=== PATIENT | female | born 1940 | race African-American/Black ===

== ENCOUNTER 2018-10-30 12:13 | Observation (INO) ==
--- NOTE | 2018-10-30 13:44 | PROVIDER DOCUMENTATION ---
HPI-Psychological Disorder - General Chief Complaint: General Adult Stated Complaint: neck px/psych/cardiac? Time Seen by Provider: 10/30/18 12:32 Source: family (daughter) Allergies/Adverse Reactions: Patient Allergies Allergy/AdvReac Type Severity Reaction Status Date / Time No Known Allergies Allergy Verified 05/30/14 20:20 Home Medications: Home Medication List Medication Instructions Recorded Confirmed Last Taken Type Calcium Carbonate Chew [Tums] 500 mg PO AC + HS PRN PRN 05/30/14 05/30/14 Unknown History Methocarbamol 500 mg PO TID PRN 05/30/14 05/30/14 Unknown History Citalopram [Celexa] 10 mg PO QHS #0 tablet 06/06/14 Unknown Rx Donepezil [Aricept] 5 mg PO HS #0 tablet 06/06/14 Unknown Rx Fish Oil/Borage/Flax/Om3,6,9#1 1,200 mg PO QHS #0 06/06/14 05/30/14 05/29/14 18:00 Rx [[place] 3-6-9 1,200 mg Softgel] LISINOpril [Prinivil] 5 mg PO QHS #0 06/06/14 05/30/14 05/30/14 18:30 Rx - History of Present Illness-Psych Nature of Presenting Problem: Pt is 78 yo female, daughter states pt has been increasingly paranoid, thinks is trying to kill her with "rays" going through her body. States they have been trying to get her admitted to [facility] and she took her there this morning, her bp was elevated and pt was c/o neck pain, had syncopal epidsode while sitting in triage chair, was out for approx 30 seconds, when regained consciousness, vomited and was diaphoretic, so they called an ambulance, ekg was done on scene and she was brought here for medical clearance. Daughter states the last time she was admitted to [facility] was approx 4 years ago. Onset/Duration: reports: gradual Timing: reports: still present Psychiatric Complaints: reports: paranoid Previous psych related hospitalizations?: Yes Similar Symptoms Previously?: Yes Review of Systems - Adult - REVIEW OF SYSTEMS - ADULT Constitutional: denies: chills, fever Eyes: reports: no symptoms reported Ears, Nose, Mouth & Throat: reports: no symptoms reported Cardiovascular: denies: chest pain Respiratory: reports: shortness of breath Gastrointestinal: reports: vomiting (x1 today) Genitourinary: reports: frequency Musculoskeletal: reports: neck pain Integumentary: denies: rash Psychiatric: reports: insomnia, other (paranoia). denies: suicidal thoughts Endocrine: reports: no symptoms reported Hematologic/Lymphatic: reports: no symptoms reported Allergic/Immunologic: reports: no symptoms reported All Other Systems: Reviewed and Negative Past History - Adult - PAST MEDICAL HISTORY-ADULT Review of Records: reports: Old Records Reviewed, Medications Reviewed, Social history reviewed & non-contributory. Physical Exam-Psych Focus - Physical Exam-Psych Initial Vital Signs Reviewed: Yes (elevated blood pressure) Appearance: appropriate appearance, neat, no apparent distress, alert, impaired insight, impaired recent memory Neurological: alert, normal mood/affect, calm Behavior/Eye Contact/Speech: cooperative, good eye contact, normal speech Thoughts/Hallucinations: no apparent hallucination HENMT: normocephalic/atraumatic, moist mucous membranes Neck: full range of motion, supple, other (cervical paraspinal tenderness bilaterally, no cervical point tenderness) Respiratory: lungs clear, normal breath sounds, no pleuratic chest pain, no respiratory distress, no accessory muscle use Cardiovascular: regular rate, rhythm, no murmur Extremity: swelling (bilat 1+ lower ext) Integumentary: normal color, normal turgor, warm/dry Progress - PLAN OF CARE/RESULTS Progress/Plan/Lab Results: Vital Signs - 8 hr 10/30/18 12:01 Temperature 98.7 F Pulse Rate 75 Respiratory Rate 18 Blood Pressure 179/86 O2 Sat by Pulse Oximetry 99 Laboratory Results - last 24 hr 10/30/18 10/30/18 10/30/18 13:29 13:43 13:43 WBC 11.43 H RBC 4.72 Hgb 12.3 Hct 36.1 L MCV 76.5 L MCH 26.1 L MCHC 34.1 RDW Std Deviation 14.4 Plt Count 322 MPV 10.3 Immature Gran % (Auto) 0.2 Neut % (Auto) 81.9 H Lymph % (Auto) 12.9 L [place] % (Auto) 4.8 Eos % (Auto) 0.1 Baso % (Auto) 0.1 Immature Gran # (Auto) 0.02 Neut # (Auto) 9.36 H Lymph # (Auto) 1.48 [place] # (Auto) 0.55 Eos # (Auto) 0.01 Baso # (Auto) 0.01 Sodium 127 L Potassium 4.0 Chloride 91 L Carbon Dioxide 25 Anion Gap 12 BUN 12 Creatinine 0.5 Estimated GFR/1.73 m2 > 60 BUN/Creatinine Ratio 24 Glucose 114 H Calculated Osmolality 256 Calcium 8.9 Total Bilirubin 0.40 AST 44 H ALT 28 Alkaline Phosphatase 54 Troponin T Total Protein 7.6 Albumin 4.2 Globulin 3.0 Albumin/Globulin Ratio 1.0 Vitamin B12 TSH Free T4 Urine Source CLEAN CATCH Urine Color YELLOW Urine Clarity CLEAR Urine pH 8.0 Ur Specific [place] 1.005 Urine Protein NEGATIVE Urine Ketones TRACE Urine Blood NEGATIVE Urine Nitrite NEGATIVE Urine Bilirubin NEGATIVE Urine Urobilinogen NORMAL Urine Microscopic RBC <10 Urine WBC NEGATIVE Urine Microscopic WBC <10 Ur Epithelial Cells <10 Urine Crystals NONE SEEN Urine Bacteria NEGATIVE Urine Casts NONE SEEN Urine Yeast NONE SEEN Urine Glucose NEGATIVE 10/30/18 10/30/18 13:43 13:43 WBC RBC Hgb Hct MCV MCH MCHC RDW Std Deviation Plt Count MPV Immature Gran % (Auto) Neut % (Auto) Lymph % (Auto) [place] % (Auto) Eos % (Auto) Baso % (Auto) Immature Gran # (Auto) Neut # (Auto) Lymph # (Auto) [place] # (Auto) Eos # (Auto) Baso # (Auto) Sodium Potassium Chloride Carbon Dioxide Anion Gap BUN Creatinine Estimated GFR/1.73 m2 BUN/Creatinine Ratio Glucose Calculated Osmolality Calcium Total Bilirubin AST ALT Alkaline Phosphatase Troponin T < 0.010 Total Protein Albumin Globulin Albumin/Globulin Ratio Vitamin B12 1429 H TSH 1.27 Free T4 0.97 Urine Source Urine Color Urine Clarity Urine pH Ur Specific [place] Urine Protein Urine Ketones Urine Blood Urine Nitrite Urine Bilirubin Urine Urobilinogen Urine Microscopic RBC Urine WBC Urine Microscopic WBC Ur Epithelial Cells Urine Crystals Urine Bacteria Urine Casts Urine Yeast Urine Glucose Orders Category Date Time Status CT HEAD W/O CONTRAST [CT] Stat Exams 10/30/18 16:21 Ordered CBC WITH ELECTRONIC DIFF [HEME] Stat Lab 10/30/18 13:43 Completed COMPREHENSIVE METABOLIC PANEL [CHEM] Stat Lab 10/30/18 13:43 Completed FREE T4 Stat Lab 10/30/18 13:43 Completed TROPONIN T Stat Lab 10/30/18 13:43 Completed TSH Stat Lab 10/30/18 13:[address] W/POSS RFLX CULT [URINALYSIS] Stat Lab 10/30/18 13:29 Completed VITAMIN B12 Stat Lab 10/30/18 13:43 Completed EKG [EKG] Stat Ther 10/30/18 14:16 Ordered Transfer/Admit Order [TRANSFER] Routine Transfer 10/30/18 16:21 Ordered Result Diagrams: 10/30/18 13:43 10/30/18 13:43 - CONSULTS/PCP/HOSPITALIST Notification Time Discussed: 16:28 Consult Disposition: Admit Departure - Departure Date of Disposition Decision: 10/30/18 Time of Disposition Decision: 16:23 DIAGNOSIS: Syncope, Hyponatremia Disposition: ADMITTED INPATIENT 09 Certified Medical Emergency: Emergent Condition: Stable Referrals and Follow-Ups: None,PCP [Primary Care Provider] - - Critical Care Note This patient required my direct & personal management of CC.: No Attestation - Physician/ HERNAN Attestation Patient care was provided by Advanced Practice Provider:: Yes Advanced Practice Provider documentation review:: The Mid-level provider documentation, treatment plan and medical decision making was reviewed by the physician who agrees with all treatment and medical decision making by the MLP. The physician spent face to face time with patient:: No Advanced Practice Provider documentation review:: Supervising physician onsite and consulted in the evaluation and care of this patient. The physician did not have a face to face encounter with the patient.
[2018-10-30 13:45] LABS: BILIRUBIN URINE NEGATIVE (NEGATIVE); BLOOD URINE NEGATIVE (NEGATIVE); CLARITY CLEAR (CLEAR); COLOR YELLOW; GLUCOSE URINE NEGATIVE (NEGATIVE); KETONE URINE TRACE mg/dL (NEGATIVE); LEUKOCYTES URINE NEGATIVE (NEGATIVE); NITRITE URINE NEGATIVE (NEGATIVE); PROTEIN URINE NEGATIVE (NEGATIVE); SP GRAVITY URINE 1.005; URINE BACTERIA NEGATIVE /HFP; URINE CAST NONE SEEN /LPF; URINE EPITHELIAL CELLS <10 /HPF (<10); URINE RBC <10 /HPF (<10); URINE WBC <10 /HPF (<10); URINE YEAST NONE SEEN /HPF; UROBILINOGEN URINE NORMAL
[2018-10-30 13:46] LABS: URINE CRYSTAL NONE SEEN /HPF; URINE SOURCE CLEAN CATCH
[2018-10-30 13:57] LABS: BASO# 0.01 X1000 (0.0-0.2); BASO% 0.1 % (0.0-0.8); EOS# 0.01 X1000 (0.0-0.7); EOS% 0.1 % (0.0-10.0); HEMATOCRIT 36.1 % (37.0-47.0); HEMOGLOBIN 12.3 g/dL (12.0-16.0); IMM GRAN# 0.02 X1000 (0.0-0.04); IMM GRAN% 0.2 % (0.0-0.5); LYMPH# 1.48 X1000 (1.2-3.4); LYMPH% 12.9 % (20.5-51.1); MCH 26.1 PG (27-31); MCHC 34.1 g/dL (33-37); MCV 76.5 FL (81-99); MONO# 0.55 X1000 (0.11-0.59); MONO% 4.8 % (1.7-9.3); MPV 10.3 FL (7.4-10.4); NEUT# 9.36 X1000 (1.4-6.5); NEUT% 81.9 % (42.2-75.2); PLT 322 X1000 (130-400); RBC 4.72 XMIL (4.2-5.4); RDW 14.4 % (11.5-14.5); WBC 11.43 X1000 (4.8-10.8)
[2018-10-30 14:10] LABS: AGAP 12; ALBUMIN 4.2 g/dL (3.5-5.0); ALKALINE PHOSPHATASE 54 U/L (32-104); BUN 12 mg/dL (8-22); CALCIUM 8.9 mg/dL (8.8-10.2); CHLORIDE 91 mmol/L (98-107); COSMO 256; CREATININE 0.5 mg/dL (0.5-0.9); ESTIMATED GFR > 60; GLUCOSE 114 mg/dL (70-104); GOT 44 U/L (10-30); GPT 28 U/L (10-36); SODIUM 127 mmol/L (136-145); TCO2 25 mmol/L (25-35); TOTAL PROTEIN 7.6 g/dL (6.3-8.3)
[2018-10-30 14:28] LABS: FREE T4 0.97 ng/dL (0.93-1.70); TSH 1.27 uIUmL (0.27-4.20)
--- NOTE | 2018-10-30 16:32 | ED EKG INTERP ---
This chart was entered by Bethany Ramesh Scribe, acting as scribe for Xavi Medina MD. EKG Interpretation - EKG Time of EKG reading by physician:: 14:57 EKG Read and Signed by:: Xavi Medina EKG Interpretation (*Must complete 3 of following elements*): Abnormal Rate: 70 Rhythm: Normal sinus rhythm [place]: normal QRS: LVH (moderate voltage criteria for LVH, may be normal variant) ST Wave: normal Attestation - Physician/ HERNAN Attestation Patient care was provided by Advanced Practice Provider:: Yes Advanced Practice Provider:: Ivet De Los Santos Advanced Practice Provider documentation review:: The Mid-level provider documentation, treatment plan and medical decision making was reviewed by the physician who agrees with all treatment and medical decision making by the MLP. The physician spent face to face time with patient:: No Advanced Practice Provider documentation review:: Supervising physician onsite and consulted in the evaluation and care of this patient. The physician did not have a face to face encounter with the patient. This chart was documented by the indicated scribe, (Bethany Ramesh Scribe) and accurately reflects the services I performed and decisions made by me, Xavi Medina MD, as attested by the provider's signature.
--- NOTE | 2018-10-30 16:37 | EKG Report ---
Test Performed on : 10/30/2018 2:57:31 PM Test Reason : CP Blood Pressure : / mmHG Vent. Rate : 070 BPM Atrial Rate : 070 BPM P-R Int : 140 ms QRS Dur : 094 ms QT Int : 396 ms P-R-T Axes : 048 -06 039 degrees QTc Int : 427 ms Normal sinus rhythm. Minimal voltage criteria for LVH, may be normal variant Borderline ECG No previous ECGs available Unconfirmed Result
--- NOTE | 2018-10-30 16:52 | Diag Imaging Result Doc PS360 ---
CT HEAD W/O CONTRAST - 10/30/2018 INDICATION: syncope COMPARISON: None FINDINGS: There is mild diffuse atrophy. There is advanced patchy cerebral white matter lucency most compatible with chronic microvascular disease. The midbrain and matt is also affected. The skull is intact. The sinuses, mastoids, and middle ears are clear. IMPRESSION: Cerebral atrophy. Advanced white matter chronic microvascular disease. This exam was performed using automated exposure control, adjustment of mA or kV according to patient size, and/or use of iterative reconstruction technique Electronically signed by Marcos Barbosa 10/30/2018 4:50 PM
[2018-10-30] MEDS ORDERED: PRINIVIL PO ONE (18:05)
[2018-10-30] MEDS ORDERED: NS 1,000 ML IV ONE (19:09)
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
[2018-10-31] MEDS ORDERED: TUMS PO PRN (07:47)
[2018-10-31] MEDS ORDERED: ROBAXIN PO PRN (07:47)
[2018-10-31] MEDS ORDERED: XANAX PO PRN (07:47)
[2018-10-31 08:18] LABS: HEMATOCRIT 35.3 % (37.0-47.0); HEMOGLOBIN 12.2 g/dL (12.0-16.0); MCH 26.7 PG (27-31); MCHC 34.6 g/dL (33-37); MCV 77.2 FL (81-99); RBC 4.57 XMIL (4.2-5.4); RDW 14.6 % (11.5-14.5); WBC 9.11 X1000 (4.8-10.8)
[2018-10-31 08:47] LABS: AGAP 9; ALKALINE PHOSPHATASE 51 U/L (32-104); BUN 10 mg/dL (8-22); CALCIUM 8.9 mg/dL (8.8-10.2); CHLORIDE 103 mmol/L (98-107); COSMO 273; CREATININE 0.6 mg/dL (0.5-0.9); ESTIMATED GFR > 60; GLUCOSE 99 mg/dL (70-104); GOT 42 U/L (10-30); GPT 28 U/L (10-36); POTASSIUM 4.2 mmol/L (3.5-5.1); SODIUM 137 mmol/L (136-145); TCO2 25 mmol/L (25-35); TOTAL PROTEIN 7.1 g/dL (6.3-8.3)
[2018-10-31 12:42] VITALS: BP 178/66
--- NOTE | 2018-10-31 20:38 | DISCHARGE SUMMARY ---
ADMISSION DATE: 10/30/2018 DISCHARGE DATE: 10/31/2018 DISCHARGE DIAGNOSES: 1. Hyponatremia, resolved. Sodium 134. 2. Hypertension, stable. 3. Dementia. 4. Leukocytosis, resolved. 5. Mild hyperglycemia, stable. 6. Syncope, resolved. 7. Paranoid reaction. CONSULTATIONS: None. PROCEDURES: None. BRIEF HOSPITAL COURSE: The patient is a 78-year-old female who appeared to be having some paranoid delusions. I certainly would expect this to be related to her dementia. Her sodium level, although it was low, is completely back to normal. She thankfully had an uneventful hospital course. Labs are normal. CT head is negative. DISPOSITION: Patient will be discharged, hopefully to [facility] to assist with her paranoid delusions that have been going on for several weeks at home. No changes were made on her home medications, diet, or activity. cc: Kris Loredo MD
[2018-10-31] MEDS ORDERED: PRINIVIL PO SCH (21:00)
[2018-10-31] MEDS ORDERED: CELEXA PO SCH (21:00)
[2018-10-31] MEDS ORDERED: ARICEPT PO SCH (21:00)
[2018-10-31] MEDS ORDERED: FISH OIL CONCENTRATE PO SCH (21:00)
== END 2018-10-31 13:00 ==
LOC: P.MEDSURG 12:13 → P.ED 12:13
PROVIDERS: ATTEND Family Medicine